=== PATIENT | male | born 1970 | race Caucasian/White ===

== ENCOUNTER → 2024-10-23 09:46 | Outpatient (REF) | payer BC, SELFPAY | LOC: RAD 09:46 | PROVIDERS: ATTENDING PHYSICIAN Nurse Practitioner; REFERRING PHYSICIAN Internal Medicine | DX: M48.02 Spinal stenosis, cervical region (principal); R20.2 Paresthesia of skin | CPT/HCPCS: 72050; 73030; 95886; 95909 ==